=== PATIENT | male | born 1945 | race Caucasian/White ===

== ENCOUNTER 2019-07-19 12:21 | Inpatient (IN) ==
[2019-07-19 13:41] LABS: POC Blood Urea Nitrogen > 140 mg/dl (8-23); POC CO2 17 mmol/L (22-30); POC Calcium, Ionized 1.13 mmol/L (1.16-1.32); POC Chloride 116 mmol/L (96-108); POC Creatinine 5.6 mg/dl (0.7-1.2); POC Glucose, Random 61 mg/dL (70-105); POC Potassium 4.9 mmol/L (3.3-5.1); POC Sodium 144 mmol/L (133-145)
--- NOTE | 2019-07-19 14:11 | Emergency Department Note ---
General Adult HPI - General Chief complaint: Rectal Bleed Stated complaint: GI Bleed, Acute on chronic renal failure Time Seen by Provider: 07/19/19 12:50 Source: patient, EMS Mode of arrival: EMS Limitations: no limitations - History of Present Illness HPI Narrative: This 73-year-old male comes from [facility] in [place] because of elevated creatinine of 5.5. He also has had some lower GI bleeding with a hemoglobin of 9.8. His creatinine has gradually gone up. He has a history of renal artery stenosis with a stent and also an occlusive problem on the left related to procedure for bladder cancer but this seemed to improve with time. He also has had significant bleeding including multiple episodes of bright red blood following a large bowel movement this morning, with bleeding between 5 AM and 10 AM. He had to shower several times because of the amount of blood. At the hospital he was seen by Dr. Marrero, surgeon who ligated several internal hemorrhoids. He has had some off-and-on bleeding multiple times a day over the past 2 weeks. Also in the documents coming from [facility] his bradycardia. REVIEW OF SYSTEMS: Denies fever, chills, sweats, chest pain, shortness of breath, nausea, vomiting, dysuria, headache, weakness, lightheadedness, anxiety, depression. He does have swelling in his legs for 2 years. He is not certain of the cause of his kidney problems. He is not a great historian. - Related Data Home Medications Medication Instructions Recorded Confirmed aspirin 81 mg chewable tablet 81 mg PO QDAY tab 04/05/15 07/19/19 clopidogrel 75 mg tablet 75 mg PO QDAY tab 04/05/15 07/19/19 pyridoxine (vitamin B6) 50 mg 50 mg PO QDAY tab 04/05/15 07/19/19 tablet carvedilol 12.5 mg tablet 12.5 mg PO BID tab 05/03/15 07/19/19 prednisone 10 mg tablet 10 mg PO QDAY tab 05/29/16 07/19/19 docusate sodium 100 mg capsule 200 mg PO QDAY 08/14/16 07/19/19 ferrous gluconate 324 mg (36 mg 324 mg PO BID tab 02/24/19 07/19/19 iron) tablet tamsulosin 0.4 mg capsule 0.4 mg PO QDAY 02/24/19 07/19/19 furosemide 80 mg tablet 20 mg PO BID tab 05/26/19 07/19/19 Calcitriol [Rocaltrol] 0.25 mcg PO Q48H 07/19/19 07/19/19 Previous Rx's Medication Instructions Recorded lisinopril 10 mg tablet 10 mg PO QHS #30 tab 05/29/16 amlodipine 10 mg tablet 10 mg PO QDAY #30 tab 03/25/18 cholecalciferol (vitamin D3) 2,000 2,000 unit PO QDAY #30 cap 03/25/18 unit capsule rosuvastatin 10 mg tablet 10 mg PO QDAY #90 tab 02/24/19 Allergies Allergy/AdvReac Type Severity Reaction Status Date / Time No Known Drug Allergies Allergy Verified 07/19/19 12:25 Past Medical History - Past Medical History [facility] Narrative: Also, history of CVA. On chronic anticoagulants (aspirin and Plavix). These anticoagulants were apparently held for a few days but restarted but is not certain. His manages his medications. She is not present. COPD Smoker of cigarettes Chronic steroid (hx of PMR?) Medical History (Last Updated 07/19/19 @ 14:11 by Robert Khan DO) DNR no code (do not resuscitate) (Chronic) Chronic kidney disease, stage IV (severe) (Chronic) Cardiomyopathy (Chronic) Congestive heart failure (Chronic) CAD (coronary artery disease) (Chronic) Secondary hyperparathyroidism of renal origin (Chronic) Anemia in chronic renal disease (Chronic) Proteinuria (Chronic) Metabolic bone disease (Chronic) Vitamin D deficiency disease (Chronic) Malignant neoplasm of urinary bladder (Chronic) Anemia in chronic renal disease (Chronic) Hypertensive renal disease (Chronic) Microscopic hematuria (Chronic) Edema (Chronic) Secondary hyperparathyroidism of renal origin (Chronic) Tricuspid regurgitation (Chronic) Pulmonary hypertension, secondary (Chronic) Pleural effusion (Resolved) Obstructive uropathy (Chronic) Mitral regurgitation (Chronic) Hypertension, essential (Chronic) Hyperlipidemia (Chronic) Degenerative joint disease (Chronic) Anxiety disorder (Chronic) Anemia (Chronic) Past Surgical History (Last Updated 07/19/19 @ 13:52 by Robert Khan DO) History of coronary artery bypass graft (Chronic) History of ureter repair (Chronic) Family History (Last Reviewed 05/26/19 @ 10:30 by Sandra Barakat CMA) Unknown Acute myocardial infarction Medical history: Denies: DM, myocardial infarction Psychiatric history: Denies: anxiety, depression - Social History smoking status: Current every day smoker Alcohol use: Denies: None Drug use: Denies: none, marijuana Physical Exam At times is fairly good with his history but other times seems to not be certain or very reliable. Limitations: no limitations General appearance: alert, in no apparent distress Head: atraumatic, normocephalic Eye: Present: normal appearance, EOMI. Absent: scleral icterus, conjunctival injection ENT: Present: normal oropharynx, mucous membranes moist Neck: Present: trachea midline. Absent: lymphadenopathy, thyromegaly Chest: Present: symmetric chest wall rise Respiratory: Present: normal lung sounds bilaterally, wheezes (Occasional scattered wheeze or rhonchi). Absent: respiratory distress, stridor, accessory muscle use, prolonged expiratory phase Cardiovascular: Present: regular rate, normal rhythm. Absent: systolic murmur, diastolic murmur Abdominal: Present: soft. Absent: distention, tenderness, guarding, rebound, rigidity, organomegaly, mass Extremities: Present: pretibial edema (3/4 pitting bilateral). Absent: cyanosis, clubbing Back: Absent: CVA tenderness (R), CVA tenderness (L), spinous process tenderness Neurological: Present: alert, oriented X3 Psychiatric: Present: normal affect, normal mood Skin: Present: warm, dry, other (Several ecchymotic areas compatible with being on blood thinners present on extremities.) Course Vital Signs Temperature 96.9 F L 07/19/19 12:22 Temperature 96.9 F L 07/19/19 12:24 Pulse Rate 49 L 07/19/19 13:16 Respiratory Rate 15 07/19/19 13:16 Blood Pressure 137/45 07/19/19 13:16 Pulse Oximetry (%) 97 07/19/19 13:16 Medical Decision Making - [facility] Narrative Medical decision making narrative: I reviewed the medical information from [facility]. With patient's acute on chronic renal failure with a creatinine of 5.5 may need dialysis or other treatment. 1:48 PM - I spoke with Dr. Lo, who kindly accepts consultative nephrology service for this patient. 2:25 PM - I spoke with Dr. Burch, hospitalist, who kindly accepts this patient for being here in this hospital. I reviewed his care and history and circumstances and medical diagnoses with him. - Medical Records Medical records reviewed: Yes I reviewed the patient's medical records. - Lab Data Lab results reviewed: Yes I reviewed the patient's lab results. Lab Results 07/19/19 Range/Units 13:28 POC Hct 25.0 L (41.0-55.0) % POC Sodium 144 (133-145) mmol/L POC Potassium 4.9 (3.3-5.1) mmol/L POC Chloride 116 H (96-108) mmol/L POC Total CO2 17 L (22-30) mmol/L POC BUN > 140 H* (8-23) mg/dl POC Creatinine 5.6 H* (0.7-1.2) mg/dl POC Glucose 61 L (70-105) mg/dL POC WB Ioniz Calcium 1.13 L (1.16-1.32) mmol/L Disposition Pt seen by [employer]ER/PA only: No Clinical Impression: Bradycardia, Lower gastrointestinal hemorrhage, Cigarette smoker, Chronic steroid use Acute on chronic renal failure Qualifiers: Acute renal failure type: unspecified Chronic kidney disease stage: stage 5, not on chronic dialysis Qualified Code(s): N17.9 - Acute kidney failure, unspecified Hemorrhoids Qualifiers: Hemorrhoid type: unspecified Qualified Code(s): K64.9 - Unspecified hemorrhoids Summary: See "MEDICAL DECISION MAKING" above. Disposition: Xfer As Inpt ([facility]) Condition: Fair Referrals: Bry Marquez MD [Primary Care Provider] -
--- NOTE | 2019-07-19 14:55 | Internal Med History&Physical ---
Medical - H&P: [facility] Patient information: Note initiated : 07/19/19 at 2:53 pm Service Date, if different from initiated Date: [] Patient: Doug Mckeon a 73 y/o M admitted on for GI Bleed, Acute on chronic renal failure. Chief Complaint: [] History of present illness: Mr. Mckeon is a 73 year old M This is a 73-year-old gentleman with a history of multiple comorbid conditions including CAD status post CABG, AAA rupture and repair in 2009, left renal artery stent placement in 2012, CVA, GI bleed, CKD, peripheral vascular disease, hypertension,. He was evaluated at outside facility for worsening renal failure and probable hemorrhoidal bleed. Patient was started on Lasix and dose was increased but his creatinine keep going up from 2.5-5.6 today. He had history of hematochezia and was evaluated by surgeon at outside facility and repaired to internal hemorrhoids yesterday. Since then no bleeding according to the patient. He was evaluated in the ER and his creatinine was 5.6 he mentioned about slightly decreased urine output. Case scenario was discussed with the telecom coordinator on-call and planning to stop his medications lisinopril and Lasix and monitor him further and initiate dialysis if needed. - Constitutional Constitutional: Present: fatigue. Absent: chills, fever(s), frequent falls - EENT Eyes: Absent: blind spots, blurry vision, change in vision, diplopia, discharge, dry eye Ears: Absent: ear discharge, ear pain Nose, mouth and throat: Absent: abnormal hearing, bleeding gums, change in voice, dental pain, disequilibrium - Cardiovascular Cardiovascular: Present: dyspnea on exertion. Absent: acrocyanosis, chest pain, chest pain at rest, claudication, diaphoresis - Respiratory Respiratory: Present: cough, dyspnea on exertion, chest congestion. Absent: hemoptysis - Gastrointestinal Gastrointestinal: Present: abdominal pain, diarrhea, heartburn, hematochezia, loose stools - Genitourinary Genitourinary: Absent: change in urinary stream, difficulty urinating, flank pain - Neurological Neurological: Absent: abnormal speech, behavioral changes, burning sensations, confusion - Endocrine Endocrine: Present: fatigue. Absent: deeping of the voice, excessive sweating, flushing Medical - H&P: PMH Medical history: Medical History (Last Updated 07/19/19 @ 14:25 by Robert Khan DO) Chronic steroid use (Chronic) Cigarette smoker (Chronic) History of bladder cancer (Chronic) Bradycardia (Acute) COPD (chronic obstructive pulmonary disease) (Chronic) emt intermediate (current) use of anticoagulants (Chronic) History of CVA (cerebrovascular accident) (Chronic) DNR no code (do not resuscitate) (Chronic) Chronic kidney disease, stage IV (severe) (Chronic) Cardiomyopathy (Chronic) Congestive heart failure (Chronic) CAD (coronary artery disease) (Chronic) Secondary hyperparathyroidism of renal origin (Chronic) Anemia in chronic renal disease (Chronic) Proteinuria (Chronic) Metabolic bone disease (Chronic) Vitamin D deficiency disease (Chronic) Malignant neoplasm of urinary bladder (Chronic) Anemia in chronic renal disease (Chronic) Hypertensive renal disease (Chronic) Microscopic hematuria (Chronic) Edema (Chronic) Secondary hyperparathyroidism of renal origin (Chronic) Tricuspid regurgitation (Chronic) Pulmonary hypertension, secondary (Chronic) Pleural effusion (Resolved) Obstructive uropathy (Chronic) Mitral regurgitation (Chronic) Hypertension, essential (Chronic) Hyperlipidemia (Chronic) Degenerative joint disease (Chronic) Anxiety disorder (Chronic) Anemia (Chronic) Surgical history: Past Surgical History (Last Updated 07/19/19 @ 13:52 by Robert Khan DO) History of coronary artery bypass graft (Chronic) History of ureter repair (Chronic) Family history: reviewed and not pertinent Pertinent family history: Family History (Last Reviewed 05/26/19 @ 10:30 by Sandra Barakat CMA) Unknown Acute myocardial infarction Social history: Social History (Last Updated 05/26/19 @ 11:22 by Deo Lo MD) No Social History Section defined Medical - H&P: Meds Home Medications Medication Instructions Recorded Confirmed Type aspirin 81 mg chewable tablet 81 mg PO QDAY tab 04/05/15 07/19/19 History clopidogrel 75 mg tablet 75 mg PO QDAY tab 04/05/15 07/19/19 History pyridoxine (vitamin B6) 50 mg 50 mg PO QDAY tab 04/05/15 07/19/19 History tablet carvedilol 12.5 mg tablet 12.5 mg PO BID tab 05/03/15 07/19/19 History lisinopril 10 mg tablet 10 mg PO QHS #30 tab 05/29/16 07/19/19 Rx prednisone 10 mg tablet 10 mg PO QDAY tab 05/29/16 07/19/19 History docusate sodium 100 mg capsule 200 mg PO QDAY 08/14/16 07/19/19 History amlodipine 10 mg tablet 10 mg PO QDAY #30 tab 03/25/18 07/19/19 Rx cholecalciferol (vitamin D3) 2,000 2,000 unit PO QDAY #30 cap 03/25/18 07/19/19 Rx unit capsule ferrous gluconate 324 mg (36 mg 324 mg PO BID tab 02/24/19 07/19/19 History iron) tablet rosuvastatin 10 mg tablet 10 mg PO QDAY #90 tab 02/24/19 07/19/19 Rx tamsulosin 0.4 mg capsule 0.4 mg PO QDAY 02/24/19 07/19/19 History furosemide 80 mg tablet 20 mg PO BID tab 05/26/19 07/19/19 History Calcitriol [Rocaltrol] 0.25 mcg PO Q48H 07/19/19 07/19/19 History Allergies Allergy/AdvReac Type Severity Reaction Status Date / Time No Known Drug Allergies Allergy Verified 07/19/19 12:25 Medical - H&P: Exam - Constitutional Vitals: Temp Pulse Resp BP Pulse Ox 96.9 F L 45 L 15 142/46 100 07/19/19 12:24 07/19/19 14:32 07/19/19 14:49 07/19/19 14:47 07/19/19 14:32 General appearance: cooperative, obese - Head Head exam: Present: atraumatic, normal inspection, normocephalic - Expanded Head Exam Head exam: Absent: Mendes's sign, CSF otorrhea, hematoma, laceration, occipital foramen tenderness - Eye Eye exam: Present: normal appearance. Absent: conjunctival injection, periorbital swelling, periorbital tenderness Pupils: Present: PERRL - ENT ENT exam: Present: mucous membranes dry, normal exam, normal oropharynx - Expanded ENT Exam Ear exam: Absent: auricular hematoma, auricular trauma, external canal tenderness Nose & sinuses exam: Present: external nose, grossly normal, nasal mucusa, septum and turbinates normal, sinuses non tender to palpatation Mouth exam: Present: normal external inspection Teeth exam: Present: normal external inspection Throat exam: Present: normal inspection - Neck Neck exam: Present: full ROM, normal inspection. Absent: lymphadenopathy, tenderness - Respiratory Respiratory exam: Present: prolonged expiratory phase, rales, wheezes - Cardiovascular Cardiovascular exam: Present: normal rate and rhythm, bradycardia, systolic murmur. Absent: tachycardia - GI/Abdominal GI/Abdominal exam: Present: normal bowel sounds, soft, distended - Extremities Exam Extremities exam: Present: pedal edema. Absent: calf tenderness, tenderness, Lala's sign - Neurological Exam Neurological exam: Present: oriented X3, reflexes normal. Absent: motor sensory deficit - Skin Skin exam: Present: erythema, pallor Medical - H&P: A/P - Narrative A/P Narrative: Acute on chronic renal failure Baseline creatinine 2.5 and creatinine today 5.6 Decreased urine output ER physician discussed with nephrology and planning to stop his Lasix and lisinopril and recheck creatinine If he is not improving will consider dialysis According to the patient he had a dialysis few years ago History of left renal artery stenosis status post stenting 2012 History of obstructive uropathy following a bladder cancer removal Plan We will stop lisinopril and Lasix Monitor renal panel Nephrology evaluation and recommendation Planning for dialysis if his urine output is getting worse Lower GI bleed Last few days history of hematochezia status post hemorrhoidal clip No further bleeding Monitor his hemoglobin Hemoglobin 9.8 Sinus bradycardia We will hold the Coreg Monitor his heart rate and restart as needed CAD status post CABG He is on dual antiplatelets-continue We will hold the Coreg as he is bradycardic AAA rupture status post surgery This was in 2009 and patient does not know much history about it Probable COPD Patient does have a wheezing intermittently Continued smoking Duo nebs as needed CODE STATUS-he has severe vascular disease and multiple comorbid conditions make him critically ill. Explained to the patient about the critical illness and he verified he is DNR. But patient okay with the dialysis DVT prophylaxis-subcu heparin
[2019-07-19] MEDS ORDERED: 0.9 % SODIUM CHLORIDE 1,000 ML IV SCH (15:37)
[2019-07-19] MEDS ORDERED: ONDANSETRON 4 MG/2 ML VIAL IV PRN (15:37)
--- NOTE | 2019-07-19 16:05 | Nephrology Consult Note ---
History of Present Illness - Reason for Consult Patient information: Note initiated : 07/19/19 at 4:02 pm Service Date, if different from initiated Date: [] Patient: Doug Mckeon 73 y/o M admitted on 07/19/19 for GI Bleed, Acute on chronic renal failure. 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 His baseline SCr was 1.9 after recovery and 1 HD treatment ut has seen a slow upward progression to a serum Cr of 3 mg/dl when last seen. Due to his ASCAD, PVD and CHF he has been on DAPT, furosemide and lisinopril. He was receiving DANA therapy due to HgB of 7-8 range. When Lasrt checked he had adequate Iron stores. He developed GI bleeding which was atributed to internal hemorrhoids which were addresweed in the ER of [facility] by a banding procedure prior to transfer here. This may have been going on for 1-2 weeks as the patient reports loose stools, weight loss, poor oral intake and malaise. He saw his PCP yesterday and labs returned this AM with HgB 9's, BUN 120/SCr 5.0 and K 5.6 mEq/L. The patient went to ED in [place] with essentially the same labs except higher BUN, internal hemorrhoids were banded and the patient was transfered here for higher level of care. I discussed the POC with his referring PCP and our ER MD and basically, they are as follows: * Stop RASSI * Use hydralazine and nitrates for rLVEF CHF * Hold diuretics * Hold ASA/Plavix for now ...ok for SQ heparin * Treat acidosis and hyperkalemia with IV bicarb and stop ACEi * Renal U/S due to Hx of obstructive uropathy in the past * Cardiac Echo * The BUN/Cr ratio suggests upper GI bleeding so IV PPi, Transfuse, EGD * If no improvement in 24-48 hours, I will consider SANITATION ENGINEER, however the patient has age and comorbidities that suggest poor prognosis (months to 1 yr) survival on HD. Review of Systems Constitutional: fatigue, lethargy, malaise, weakness Cardiovascular: leg edema, pedal edema, slow heart rate Respiratory: cough Gastrointestinal: change in bowel habits, diarrhea, loose stools Musculoskeletal: limited range of motion Integumentary: swelling Psychiatric: change in appetite Endocrine: cold intolerance Hematologic/Lymphatic: easy bruising Past History Past medical history: Medical History (Last Updated 07/19/19 @ 14:25 by Robert Khan DO) Chronic steroid use (Chronic) Cigarette smoker (Chronic) History of bladder cancer (Chronic) Bradycardia (Acute) COPD (chronic obstructive pulmonary disease) (Chronic) 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) History of CVA (cerebrovascular accident) (Chronic) DNR no code (do not resuscitate) (Chronic) Chronic kidney disease, stage IV (severe) (Chronic) Cardiomyopathy (Chronic) Congestive heart failure (Chronic) CAD (coronary artery disease) (Chronic) Secondary hyperparathyroidism of renal origin (Chronic) Anemia in chronic renal disease (Chronic) Proteinuria (Chronic) Metabolic bone disease (Chronic) Vitamin D deficiency disease (Chronic) Malignant neoplasm of urinary bladder (Chronic) Anemia in chronic renal disease (Chronic) Hypertensive renal disease (Chronic) Microscopic hematuria (Chronic) Edema (Chronic) Secondary hyperparathyroidism of renal origin (Chronic) Tricuspid regurgitation (Chronic) Pulmonary hypertension, secondary (Chronic) Pleural effusion (Resolved) Obstructive uropathy (Chronic) Mitral regurgitation (Chronic) Hypertension, essential (Chronic) Hyperlipidemia (Chronic) Degenerative joint disease (Chronic) Anxiety disorder (Chronic) Anemia (Chronic) Surgical history: Past Surgical History (Last Updated 07/19/19 @ 13:52 by Robert Khan DO) History of coronary artery bypass graft (Chronic) History of ureter repair (Chronic) Family history: reviewed and not pertinent Pertinent family history: Family History (Last Reviewed 05/26/19 @ 10:30 by Sandra Barakat CMA) Unknown Acute myocardial infarction Social history: Social History (Last Updated 05/26/19 @ 11:22 by Deo Lo MD) No Social History Section defined Medications and Allergies Home Medications Medication Instructions Recorded Confirmed Type aspirin 81 mg chewable tablet 81 mg PO QDAY tab 04/05/15 07/19/19 History clopidogrel 75 mg tablet 75 mg PO QDAY tab 04/05/15 07/19/19 History pyridoxine (vitamin B6) 50 mg 50 mg PO QDAY tab 04/05/15 07/19/19 History tablet carvedilol 12.5 mg tablet 12.5 mg PO BID tab 05/03/15 07/19/19 History lisinopril 10 mg tablet 10 mg PO QHS #30 tab 05/29/16 07/19/19 Rx prednisone 10 mg tablet 10 mg PO QDAY tab 05/29/16 07/19/19 History docusate sodium 100 mg capsule 200 mg PO QDAY 08/14/16 07/19/19 History amlodipine 10 mg tablet 10 mg PO QDAY #30 tab 03/25/18 07/19/19 Rx cholecalciferol (vitamin D3) 2,000 2,000 unit PO QDAY #30 cap 03/25/18 07/19/19 Rx unit capsule ferrous gluconate 324 mg (36 mg 324 mg PO BID tab 02/24/19 07/19/19 History iron) tablet rosuvastatin 10 mg tablet 10 mg PO QDAY #90 tab 02/24/19 07/19/19 Rx tamsulosin 0.4 mg capsule 0.4 mg PO QDAY 02/24/19 07/19/19 History furosemide 80 mg tablet 20 mg PO BID tab 05/26/19 07/19/19 History Calcitriol [Rocaltrol] 0.25 mcg PO Q48H 07/19/19 07/19/19 History Allergies Allergy/AdvReac Type Severity Reaction Status Date / Time No Known Drug Allergies Allergy Verified 07/19/19 12:25 Exam - Vital Signs Vital signs: Temp Pulse Resp BP Pulse Ox 96.9 F L 45 L 15 142/46 100 07/19/19 12:24 07/19/19 15:38 07/19/19 15:38 07/19/19 15:38 07/19/19 15:38 - General Appearance General appearance: chronically ill, fatigue, frail EENT: ATNC, PERRL, mucous membranes dry Neck: JVD, no carotid bruit, supple Respiratory: rhonchi Cardiology: no murmurs, no rub, no gallops, edema, regular rate (Sinus bradycardia), normal S1, normal S2 Gastrointestinal: normoactive bowel sounds, no tenderness, abdominal bruit Integumentary: no rash Neurologic: no focal deficit, no asterixis, alert and oriented x3 Musculoskeletal: no deformities, no clubbing Psychiatric: mood/affect appropriate Results - Lab Results 07/19/19 13:28 - Image Kidney/bladder ultrasound: image reviewed Assessment and Plan (1) Acute on chronic renal failure Suspect this is acute renal failure due to renal hypoperfusion from bradycardia in the setting of known dilated cardiomyopathy (CO=HR x SV) ashis SVis limited by his known dilated CHF withr EF, plus hemodynamic effect of ACEi and the effect of acute GI blood loss * Stop ACEi and diuretic * Use hydralazine and nitrates for CHF treatment (preload and afterload reduction) * U/S to rule out obstructive uropathy * If bradycardia continues, trial of a chronotropic agent like dopamine and or dobutamine * Check FeNa, Urine eosinophils, and urine protein/creatinine ratio In the past, his CKD 4 has been attributed to hypertension and renovascular dis ease and incomplete recovery after obstruction and ARF. His course has been stable or slowly progressive. * Repeat U/S * Other changes as above * Looking at his co-morbidities, his survival is poor if he requires HD. * This was discussed with the patient * At this time there is no acute need for HD Status: Acute Priority: High Qualifiers: Acute renal failure type: unspecified Chronic kidney disease stage: stage 4 (severe) Qualified Code(s): N17.9 - Acute kidney failure, unspecified; N18.4 - Chronic kidney disease, stage 4 (severe) (2) Secondary hyperparathyroidism of renal origin Monitor PTHi, Ca and PO4 * Goal PTH 100-300 * Keep PO4 less than 5 * Ca <10 adjusted for Albumin Status: Chronic Priority: Low Comment: PTH at 105 , at goal for CKD stage I V, vitamin D is at 30 calcium at goal, phos is elevated Ct calcitriol and cholecalciferol ct renvela for phos binding will monitor (3) Chronic systolic CHF (congestive heart failure), NYHA class 3 ASCAD with CABG in 2009 EF 40-45% in 2014 and 50% in [address] Melgar * Check proBNP * Repeat cardiac Echo * Stop RAASI and use hydralazine and nitrates * If HR low and EF low, I'd add dopamine and or dobutamine Status: Chronic Priority: High (4) Lower gastrointestinal hemorrhage Has had diarrhea and loose stool with internal hemorrhoids which was banded in OSH/ED However, the BUN is so high I suspect UGI source * Hold ASA and plavix * PPI * Serial HgB * Transfuse to HgB 9-10 mg/dl due to CKD5, ongoing GI losses and CV disease * EGD when stable Status: Acute Priority: High (5) Anemia in chronic renal disease Adequate iron stores as outpatient * Aranesp as needed after acute bleeding has stopped at 0.75 ug/kg/week Status: Chronic Priority: Medium Qualifiers: Chronic kidney disease stage: stage 5, not on chronic dialysis Qualified Code(s): N18.5 - Chronic kidney disease, stage 5; D63.1 - Anemia in chronic kidney disease (6) Metabolic acidosis with increased anion gap and reduced excretion of inorganic acids Primarly due to worsenig GFR but hypoperfusion could be an element if CO is low. * Bicarb drip 100 meq/L at 100 cc/hr is 4 amps bicarb over 20 hours * Should help the hyperkalemia and hyperphosphatemia * Will be limited by volume Status: Acute Priority: Medium
[2019-07-19] MEDS ORDERED: 0.9 % SODIUM CHLORIDE 250 ML IV SCH ×2 (16:45→17:15)
[2019-07-19] MEDS ORDERED: SODIUM BICARBONATE VIAL 100 MEQ in DEXTROSE 5% IN WATER 900 ML IV SCH (17:00)
[2019-07-19 17:01] LABS: Estimated Average Glucose(eAG) 91 mg/dL; Hemoglobin A1C 4.8 % HGB (4.0-6.0)
[2019-07-19 17:05] LABS: ALT/SGPT 25 U/l (0-40); AST/SGOT 18 U/l (0-37); Albumin 3.3 gm/dL (3.2-5.2); Albumin/Globulin Ratio 1.6 (1.0-2.3); Alkaline Phosphatase 65 U/L (39-117); Bilirubin,Total 0.4 mg/dL (0.0-1.0); Blood Urea Nitrogen 133 mg/dl (8-23); Carbon Dioxide 15 mmol/L (22-30); Chloride 112 mmol/L (96-108); Globulin 2.1 gm/dL (2.2-3.7); Glomerular Filtration Rate 10; Glucose 53 mg/dL (70-105); Thyroid Stimulating Hormone 1.37 uIU/ml (0.27-5.01)
--- NOTE | 2019-07-19 17:42 | Ultrasound Report ---
History: Stage IV chronic renal disease, evaluate for urinary tract obstruction FINDINGS: The right kidney measures 4.5 x 4.5 x 10.0 cm left measures 3.8 x 4.2 x 9.8 cm. The cortex of both kidneys is echogenic due to chronic medical renal disease. There is a small defect in the cortex inferiorly left kidney which could be lobulation or an old cortical infarct. There are multiple small cysts in both kidneys. The largest in the right kidney is in the lower pole measures 1.0 x 1.1 cm. The largest cyst in left kidney is located inferiorly and measures 1.1 x 1.2 cm. In the lower third of the right kidney there is a round echogenic nonshadowing 6 mm structure which could be an angiomyolipoma. In the hilar region of the right kidney there is a complex hypoechoic avascular 1.6 x 1.8 cm structure. Has some low level echoes within it. This could be a complex cyst. The prior ultrasound done on 09/17/14 there is a suggestion of thrombus in the right renal pelvis. The structure seen along the medial occipital to the right renal pelvis and today's study does not appear to be clot. Is probably a complex cyst. Is unlikely neoplasm. Doppler shows flow of urine through both ureters into the bladder, right side greater than left. Before voiding the bladder contained 238 cc of urine. There is low level echogenic debris posteriorly. After voiding there is 149 cc of residual urine. Prostate is mildly enlarged with an estimated volume of 36 cc. IMPRESSION: Echogenic renal parenchyma bilaterally due to chronic medical renal disease, with relatively diminished urine output on the left side compared to the right Cysts in both kidneys Hypoechoic structure medially in the right kidney which is probably a complex parapelvic cyst Bladder outlet obstruction, probably due to an enlarged prostate Interpreted and Authenticated by: Mac Erwin 07/19/19
[2019-07-19 18:06] LABS: Sodium, Urine Random 35 mmol/L
[2019-07-19] MEDS: PANTOPRAZOLE 40 MG TABLET PO SCH (21:01)
[2019-07-19] MEDS: hydrALAZINE 10 MG TABLET PO SCH (21:01)
[2019-07-19] MEDS: DOCUSATE SODIUM 100 MG CAPSULE PO SCH (21:01)
[2019-07-19] MEDS: HEPARIN 5,000 UNIT/ML VIAL SQ SCH (21:02)
[2019-07-19] MEDS: ISOSORBIDE DINITRATE 10 MG TABLET PO SCH (21:02)
[2019-07-19] MEDS: 0.9 % SODIUM CHLORIDE 10 ML SYRINGE IV SCH (21:02)
[2019-07-20] MEDS: 0.9 % SODIUM CHLORIDE 10 ML SYRINGE IV SCH ×3 (05:38→20:21)
[2019-07-20] MEDS ORDERED: SODIUM BICARBONATE VIAL 100 MEQ in DEXTROSE 5% IN WATER 900 ML IV SCH (07:15)
[2019-07-20 07:34] LABS: Hematocrit 29.4 % (41.0-55.0); Hemoglobin 9.7 g/dL (13.5-16.5); Mean Cell Volume 90.3 fL (80.0-100.0); Mean Corpuscular HGB Conc 32.8 g/dL (31.0-36.0); Mean Platelet Volume 13.2 fL (7.4-10.4); Platelet Count 90 K/mcL (140-440); RBC 3.26 M/mcL (4.50-5.90); Red Cell Distribution Width 16.3 % (11.5-14.5); WBC 8.1 K/mcL (4.5-11.0)
[2019-07-20] MEDS ORDERED: LACTULOSE 20 GM/30 ML ORAL.SOL PO SCH ×2 (09:00)
[2019-07-20 09:02] LABS: ALT/SGPT 24 U/l (0-40); AST/SGOT 19 U/l (0-37); Albumin 3.4 gm/dL (3.2-5.2); Albumin/Globulin Ratio 1.7 (1.0-2.3); Alkaline Phosphatase 62 U/L (39-117); Bilirubin,Total 0.9 mg/dL (0.0-1.0); Blood Urea Nitrogen 128 mg/dl (8-23); Calcium 7.9 mg/dl (8.6-10.4); Carbon Dioxide 17 mmol/L (22-30); Chloride 110 mmol/L (96-108); Glomerular Filtration Rate 11; Glucose 89 mg/dL (70-105)
[2019-07-20 09:48] LABS: Anisocytosis 1+ (NONE SEEN); Band Neutrophils % 1 % (0-10); Eosinophils % (Manual) 2 % (0-7); Lymphocytes % 14 % (15-49); Monocytes % (Manual) 9 % (1-12); Ovalocytes FEW (NONE SEEN); Platelet Estimate DECREASED (NORMAL); RBC Morphology ABNORM (NORMAL); Segmented Neutrophils % 74 % (38-78)
[2019-07-20] MEDS ORDERED: DOBUTamine 250 ML IV ONE ×2 (10:07→19:05)
[2019-07-20] MEDS: DOCUSATE SODIUM 100 MG CAPSULE PO SCH ×2 (10:15→20:15)
[2019-07-20] MEDS: hydrALAZINE 10 MG TABLET PO SCH ×2 (10:16→15:32)
[2019-07-20] MEDS: 0.9 % SODIUM CHLORIDE 250 ML IV SCH ×2 (10:46→20:32)
[2019-07-20] MEDS: DOBUTamine 250 MG in PREMIX 1 BAG IV SCH (10:47)
[2019-07-20] MEDS: HEPARIN 5,000 UNIT/ML VIAL SQ SCH ×2 (11:03→20:16)
[2019-07-20] MEDS: SENNOSIDES 8.8 MG/5 ML ML PT SCH (11:13)
[2019-07-20] MEDS: ISOSORBIDE DINITRATE 10 MG TABLET PO SCH ×3 (11:14→20:25)
--- NOTE | 2019-07-20 11:54 | Internal Med Progress Note ---
Medical - PN: Subj Patient information: Note initiated : 07/20/19 at 11:52 am Service Date, if different from initiated Date: [] Patient: Doug Mckeon 73 y/o M admitted on 07/19/19 for GI Bleed, Acute on chronic renal failure. Chief Complaint: [] Interval history: 73-year-old gentleman with a history of multiple comorbid conditions including CAD status post CABG, AAA rupture and repair in 2009, left renal artery stent placement in 2012, CVA, GI bleed, CKD, peripheral vascular disease, hypertensio n. He was admitted for progressively worsening renal failure with a creatinine of 5.6 and decreased urine output 07/20 -seen by nephrology yesterday and started him on bicarb drip, stopped NOEMÍ inhibitor and Coreg. He remained bradycardic overnight and started him on dobutamine by nephrology this morning. His heart rate has been more than 60. His urine output improved since having Perez catheter. He is having constipation and started him on lactulose and enema if needed. Pertinent ROS: General appearance-mild distress, alert oriented answering questions Abdominal-complaining of constipation Respiratory-no shortness of breath no wheezing no crackles CVS-no chest pain no palpitations Neurology-no no focal deficit identified Skin-multiple bruises and petechiae - Constitutional Vitals: Vital Signs Temp Pulse Resp BP Pulse Ox 99.2 F H 56 L 18 149/54 95 07/20/19 07:03 07/20/19 06:01 07/20/19 11:50 07/20/19 11:46 07/20/19 11:50 Period Temp Pulse Resp BP Sys/Leija Pulse Ox Last 24 Hr 96.9 F-99.2 F 34-56 13-26 127-160/41-85 81-100 Intake and Output 07/19/19 07/20/19 07/20/19 21:59 05:59 13:59 Intake Total 287 40 5327 Output Total 100 352 Balance 753 -312 1003 Weight 149 lb 11.2 oz Intake & Output: Intake & Output 07/19/19 07/20/19 07/20/19 21:59 05:59 13:59 Intake Total 517 96 8079 Output Total 100 352 Balance 753 -312 1003 Weight 149 lb 11.2 oz Intake: IV 48 40 1003 Sodium Chloride 0.9% 1,000 ml @ 48 30 mls/hr IV .Q24H QUIANA Rx#: [id number] Sodium Chloride 0.9% 250 ml @ 40 20 mls/hr IV .[id number] QUIANA Rx#: [id number] Dobutrex 250 mg In Premix 1 Bag 3 @ 1 MCG/KG/MIN 4.074 mls/hr IV .Q24H QUIANA Rx#:[id number] Sodium Bicarbonate Vial 100 Meq 1000 In Dextrose 5% in Water 900 ml @ 100 mls/hr IV Q20H QUIANA Rx#: [id number] Oral 480 Blood Product 325 Output: Void Amount 100 350 # of times incontinent of urine 2 Other: Meal Dinner Percent of Meal Consumed 100% Urine Appearance Uretheral (Perez) Clear Urine Color Uretheral (Perez) Pale Urine Odor Uretheral (Perez) Normal Stool Size Small Stool Color Brown Jin Bright Red Blood Stool Consistency Soft Formed # Bowel Movements 2 General appearance: mild distress, obese - Head Head exam: Present: atraumatic, normal inspection, normocephalic - Eye Eye exam: Present: normal appearance Pupils: Present: PERRL - ENT ENT exam: Present: mucous membranes moist, normal exam, normal external ear exam - Neck Neck exam: Present: full ROM, normal inspection. Absent: lymphadenopathy - Respiratory Respiratory exam: Present: rales, wheezes - Cardiovascular Cardiovascular exam: Present: bradycardia, systolic murmur - GI/Abdominal GI/Abdominal exam: Present: normal bowel sounds, soft, distended - Neurological Exam Neurological exam: Present: alert, oriented X3. Absent: motor sensory deficit - Skin Skin exam: Present: abrasion, erythema, petechiae, rash Medical - PN: Obj Da - Labs CBC & Chem 7: 07/20/19 04:00 07/20/19 15:37 Labs: Abnormal Lab Results 07/20/19 07/20/19 07/20/19 15:37 04:00 04:00 RBC 3.26 L Hgb 9.7 L Hct 29.4 L POC Hct RDW 16.3 H Plt Count 90 L MPV 13.2 H Lymphocytes % 14 L Platelet Estimate Decreased A RBC Morphology Abnorm A Anisocytosis 1+ A Ovalocytes Few A Sodium POC Chloride Chloride 110 H Carbon Dioxide 17 L POC Total CO2 Anion Gap 18.0 H POC BUN BUN 128 H* Creatinine 4.7 H POC Creatinine Glucose POC Glucose Calcium 7.9 L POC WB Ioniz Calcium Magnesium 3.2 H NT-Pro-B Natriuret Pep Total Protein 5.4 L Globulin 2.0 L PTH Intact 161.8 H 07/19/19 07/19/19 07/19/19 17:10 13:28 13:28 RBC Hgb Hct POC Hct 25.0 L RDW Plt Count MPV Lymphocytes % Platelet Estimate RBC Morphology Anisocytosis Ovalocytes Sodium 147 H POC Chloride 116 H Chloride 112 H Carbon Dioxide 15 L POC Total CO2 17 L Anion Gap 20.0 H POC BUN > 140 H* BUN 133 H* Creatinine 5.0 H POC Creatinine 5.6 H* Glucose 53 L POC Glucose 61 L Calcium 8.0 L POC WB Ioniz Calcium 1.13 L Magnesium 3.3 H NT-Pro-B Natriuret Pep 56162.0 H Total Protein 5.4 L Globulin 2.1 L PTH Intact Meds: Medications Docusate Sodium (Colace) 100 mg PO BID [facility] Last Admin: 07/20/19 10:15 Dose: 100 mg Documented by: Heparin Sodium (Porcine) (Heparin) 5,000 unit SQ Q12 [facility] Last Admin: 07/20/19 11:03 Dose: Not Given Documented by: Hydralazine HCl (Apresoline) 10 mg PO TID [facility] Last Admin: 07/20/19 10:16 Dose: 10 mg Documented by: Sodium Bicarbonate 100 meq/ (Dextrose) 1,000 mls @ 100 mls/hr IV Q10H [facility] Stop: 07/20/19 17:14 Last Admin: 07/20/19 07:28 Dose: 100 mls/hr Documented by: Dobutamine HCl/Dextrose 250 mg (/ Premix) 250 mls @ 4.074 mls/hr IV .Q24H [facility]; Protocol Last Titration: 07/20/19 11:29 Dose: 2 mcg/kg/min, 8.148 mls/hr Documented by: Sodium Chloride (Sodium Chloride 0.9%) 250 mls @ 20 mls/hr IV .[id number] [facility] Last Admin: 07/20/19 10:46 Dose: 20 mls/hr Documented by: Isosorbide Dinitrate (Isordil) 5 mg PO TID [facility] Last Admin: 07/20/19 11:14 Dose: 5 mg Documented by: Lactulose (Cephulac) 20 gm PO TID [facility] Last Admin: 07/20/19 11:02 Dose: 20 gm Documented by: Ondansetron HCl (Zofran) 4 mg IV Q4-6HP PRN; Protocol PRN Reason: Nausea And Vomiting Pantoprazole Sodium (Protonix) 40 mg PO HS [facility] Last Admin: 07/19/19 21:01 Dose: 40 mg Documented by: Senna (Senna) 8.8 mg PT DAILY [facility] Last Admin: 07/20/19 11:13 Dose: 8.8 mg Documented by: Sodium Chloride (Saline Flush) 10 ml IV Q8 [facility] Last Admin: 07/20/19 05:38 Dose: Not Given Documented by: Medical - PN: A/P - Time Spent With Patient Total time spent is greater than 50% in coordination of care (as documented) at patient's floor/unit and/or counseling patient: - Narrative A/P Narrative: Acute on chronic renal failure Baseline creatinine 2.5 and creatinine today 5.6 Decreased urine output Plan Stopped Lasix and lisinopril Started him on hydralazine and nitrates for CHF Holding aspirin and Plavix because of the GI bleed Renal ultrasound showing evidence of obstruction Perez catheter placed and having good urine output Echocardiogram ordered-pending Nephrology closely following up and planning dialysis if he is not improving in the next 24 to 40-hour Dobutamine drip was started because of the bradycardia and to avoid further renal damage Lower GI bleed-probable internal hemorrhoidal bleed Last few days history of hematochezia status post hemorrhoidal clip He had some hematochezia this morning Monitoring BUN and hemoglobin monitor his hemoglobin Holding aspirin Plavix and heparin subcu Sinus bradycardia probably due to Coreg We will hold the Coreg Heart rate has been progressively improving since yesterday CAD status post CABG Holding dual antiplatelets due to lower GI bleed we will hold the Coreg as he is bradycardic Using hydralazine and long-acting nitro for CHF AAA rupture status post surgery This was in 2009 and patient does not know much history about it Probable COPD Patient does have a wheezing intermittently Continued smoking Duo nebs as needed CODE STATUS-he has severe vascular disease and multiple comorbid conditions make him critically ill. Explained to the patient about the critical illness and he verified he is DNR. But patient okay with the dialysis DVT prophylaxis-subcu heparin Medical - PN: Qual - VTE Deep Vein Thrombosis/Pulmonary Embolism Present on Admission: No
--- NOTE | 2019-07-20 16:36 | Nephrology Progress Note ---
Subjective Patient information: Note initiated : 07/20/19 at 4:32 pm Service Date, if different from initiated Date: [] Patient: Doug Mckeon 73 y/o M admitted on 07/19/19 for GI Bleed, Acute on chronic renal failure. Chief Complaint: [] Principal diagnosis: Renal failure, hyperkalemia and GI bleed Interval history: Slightly improved SCr, K and acidosis. ECHO=> pLVEF but evidence of elevated right sided pressures, early cor pulmonale and no effusion Renal U/S=> No obstruction, increased PVRV, few cysts, increased echogenicity c/w CKD Tele=> persistent bradycardia into 30's, Dobutamine started as positive chronotropic Rx. Not clear if he was on carvedilol or not Non-oliguria Transfused 1 unit pRBCs Pertinent ROS: Constipation relieved with lactulose Additional PMFSH (Level 3 Only): Nothing new Objective - Vital Signs Vital signs: Vital Signs Temp Pulse Resp BP Pulse Ox 07/20/19 16:17 20 159/47 91 07/20/19 16:02 19 140/50 93 07/20/19 15:51 18 95 07/20/19 15:47 18 163/40 98 07/20/19 15:32 19 189/56 98 07/20/19 15:17 16 143/53 94 07/20/19 15:02 19 163/52 96 07/20/19 14:47 17 164/53 97 07/20/19 14:32 21 168/61 89 L 07/20/19 14:17 21 149/47 07/20/19 14:04 21 154/53 98 07/20/19 13:31 11 L 159/85 95 07/20/19 13:16 19 161/52 98 07/20/19 12:16 20 158/58 93 07/20/19 12:02 99.0 F 20 157/50 96 07/20/19 11:50 18 95 07/20/19 11:46 18 149/54 91 07/20/19 11:32 20 140/55 93 07/20/19 11:17 18 160/54 07/20/19 11:01 20 148/54 90 07/20/19 10:55 23 H 141/55 97 07/20/19 10:52 23 H 149/52 89 L 07/20/19 07:03 99.2 F H 20 159/53 96 07/20/19 06:01 56 L 17 151/61 90 07/20/19 05:01 50 L 18 97 07/20/19 04:48 52 L 21 94 07/20/19 04:04 99.0 F 53 L 20 151/48 95 07/20/19 03:10 22 154/60 98 07/20/19 02:18 52 L 20 96 07/20/19 02:00 96 07/20/19 00:02 44 L 21 146/50 95 07/19/19 23:13 17 07/19/19 22:23 20 07/19/19 22:02 16 153/47 98 07/19/19 21:35 26 H 07/19/19 21:01 44 L 16 154/52 93 07/19/19 20:02 98.5 F 43 L 18 142/55 97 07/19/19 20:00 95 07/19/19 19:51 42 L 17 133/52 97 07/19/19 19:42 48 L 16 147/59 92 07/19/19 19:02 19 149/53 07/19/19 18:16 16 07/19/19 18:13 13 147/49 07/19/19 17:09 40 L 17 142/56 93 Intake and Output 07/20/19 07/20/19 07/20/19 05:59 13:59 21:59 Intake Total 40 1003 49 Output Total 352 767 65 Balance -312 236 -16 Intake: IV 40 1003 49 Sodium Chloride 0.9% 250 ml @ 40 20 mls/hr IV .[id number] QUIANA Rx#: [id number] Dobutrex 250 mg In Premix 1 Bag 3 49 @ 1 MCG/KG/MIN 4.074 mls/hr IV .Q24H QUIANA Rx#:[id number] Sodium Bicarbonate Vial 100 Meq 1000 In Dextrose 5% in Water 900 ml @ 100 mls/hr IV Q20H QUIANA Rx#: [id number] Output: Urine Catheter Amount 692 65 Void Amount 350 75 # of times incontinent of urine 2 Other: Urine Appearance Clear Clear Uretheral (Perez) Clear Clear Urine Color Pale Pale Uretheral (Perez) Pale Pale Urine Odor Uretheral (Perez) Normal Stool Size Small Small Stool Color Brown Brown Green Green Stool Consistency Liquid Liquid # Bowel Movements 2 2 # of times incontinent of 1 Bowels Weight 149 lb 11.2 oz Patient Weight 07/21/19 05:59 Weight 149 lb 11.2 oz Intake & Output: Intake & Output 07/20/19 07/20/19 07/20/19 05:59 13:59 21:59 Intake Total 40 1003 49 Output Total 352 767 65 Balance -312 236 -16 Weight 149 lb 11.2 oz Intake: IV 40 1003 49 Sodium Chloride 0.9% 250 ml @ 40 20 mls/hr IV .[id number] QUIANA Rx#: [id number] Dobutrex 250 mg In Premix 1 Bag 3 49 @ 1 MCG/KG/MIN 4.074 mls/hr IV .Q24H QUIANA Rx#:[id number] Sodium Bicarbonate Vial 100 Meq 1000 In Dextrose 5% in Water 900 ml @ 100 mls/hr IV Q20H QUIANA Rx#: [id number] Output: Urine Catheter Amount 692 65 Void Amount 350 75 # of times incontinent of urine 2 Other: Urine Appearance Clear Clear Uretheral (Perez) Clear Clear Urine Color Pale Pale Uretheral (Perez) Pale Pale Urine Odor Uretheral (Perez) Normal Stool Size Small Small Stool Color Brown Brown Green Green Stool Consistency Liquid Liquid # Bowel Movements 2 2 # of times incontinent of 1 Bowels - General Appearance General appearance: moderate distress, chronically ill, frail EENT: ATNC, PERRL, mucous membranes dry Neck: JVD, no carotid bruit, supple Respiratory: kyphosis, rhonchi Cardiology: no murmurs, edema, regular rate (Bradycardia till placed on dobutamine) Gastrointestinal: normoactive bowel sounds Integumentary: no rash, cool/clammy, ecchymotic Neurologic: no focal deficit, no asterixis, CN 3-12 intact Musculoskeletal: no cyanosis, no clubbing Psychiatric: mood/affect appropriate - Lab 07/20/19 04:00 07/20/19 15:37 Most recent lab results Calcium 7.9 mg/dl (8.6-10.4) L 07/20/19 15:37 Magnesium 3.2 mg/dL (1.6-2.5) H 07/20/19 15:37 - Imaging Kidney/bladder ultrasound: report reviewed Assessment and Plan (1) Acute on chronic renal failure 1. The combination of low cardiac output (HR 30-50 with fixed SV), low fractional excreation of sodium, ARF on CRF 4, hyperkalemia and no obstruction omn renal U/S makes a good case that this patient needs his HR increased to 70- 80/min to double his current cardiac output and improve end organ perfusion. * Dobutamine till HR improves assuming carvedilol was the problem * If the heart rate has not improved in 24 hours, I suggest transfer for higher level of care and PPM * Continue to refrain from RAASI, especially since he has normal LVEF * Treat RV failure, pulmonary HTN with Hydralazine, nitrites, furosemide +/- aldactone * Avoid NSAIDs Status: Acute Priority: High Qualifiers: Acute renal failure type: unspecified Chronic kidney disease stage: stage 4 (severe) Qualified Code(s): N17.9 - Acute kidney failure, unspecified; N18.4 - Chronic kidney disease, stage 4 (severe) (2) Secondary hyperparathyroidism of renal origin PTH 160, need to check PO4 * Restart calcitriol at D/C * Keep PO4 < 5.5 Status: Chronic Priority: Low Comment: PTH at 162, at goal for CKD stage IV, vitamin D is at 30 calcium at goal, phos is elevated Ct calcitriol and cholecalciferol ct renvela for phos binding will monitor (3) Chronic systolic CHF (congestive heart failure), NYHA class 3 Actually, this is more like Cor pulmonale * BNP elevated, will restart lasix in a day or so * No need for lisinopril or B-Blockers * Hydralazine and nitrates +/- aldactone * Probably needs to quit smoking Status: Chronic Priority: High (4) Lower gastrointestinal hemorrhage Internal hemorrhoids banded and transfused 1 unit * Trend HgB * DANA and po iron as indicated due to decreased GFR * EGD when stable Status: Acute Priority: High (5) Anemia in chronic renal disease As above Status: Chronic Priority: Medium Qualifiers: Chronic kidney disease stage: stage 5, not on chronic dialysis Qualified Code(s): N18.5 - Chronic kidney disease, stage 5; D63.1 - Anemia in chronic kidney disease (6) Metabolic acidosis with increased anion gap and reduced excretion of inorganic acids Improved with IV bicarb * Bicarb or bicitra at d/c * Goal HCO3 of 20-24 Status: Acute Priority: Medium
[2019-07-20] MEDS ORDERED: hydrALAZINE 20 MG/ML VIAL IV PRN (17:50)
[2019-07-20] MEDS: PANTOPRAZOLE 40 MG TABLET PO SCH (20:21)
[2019-07-20] MEDS: hydrALAZINE 25 MG TABLET PO SCH (20:22)
[2019-07-20 21:15] LABS: Albumin 3.2 gm/dL (3.2-5.2); Blood Urea Nitrogen 112 mg/dl (8-23); Calcium 7.9 mg/dl (8.6-10.4); Carbon Dioxide 22 mmol/L (22-30); Chloride 109 mmol/L (96-108); Glomerular Filtration Rate 15; Glucose 97 mg/dL (70-105); Phosphorous 4.5 mg/dL (2.7-4.5)
[2019-07-20] MEDS: QUEtiapine 25 MG TABLET PO SCH (23:48)
[2019-07-20] MEDS ORDERED: QUEtiapine 25 MG TABLET ONE (23:48)
[2019-07-21] MEDS ORDERED: DOBUTamine 250 ML IV ONE ×2 (01:04→07:28)
[2019-07-21] MEDS: DOBUTamine 250 MG in PREMIX 1 BAG IV SCH (01:05)
[2019-07-21] MEDS ORDERED: DOBUTamine 250 MG in PREMIX 1 BAG IV SCH (02:03)
[2019-07-21] MEDS: 0.9 % SODIUM CHLORIDE 10 ML SYRINGE IV SCH ×3 (05:09→21:24)
[2019-07-21 06:15] LABS: ALT/SGPT 20 U/l (0-40); AST/SGOT 17 U/l (0-37); Albumin 2.8 gm/dL (3.2-5.2); Albumin/Globulin Ratio 1.4 (1.0-2.3); Alkaline Phosphatase 53 U/L (39-117); Bilirubin,Total 0.6 mg/dL (0.0-1.0); Blood Urea Nitrogen 107 mg/dl (8-23); Calcium 7.9 mg/dl (8.6-10.4); Carbon Dioxide 20 mmol/L (22-30); Chloride 113 mmol/L (96-108); Glomerular Filtration Rate 14; Glucose 128 mg/dL (70-105)
[2019-07-21] MEDS: SENNOSIDES 8.8 MG/5 ML ML PT SCH (07:29)
[2019-07-21] MEDS: DOCUSATE SODIUM 100 MG CAPSULE PO SCH ×2 (07:29→21:18)
[2019-07-21 07:59] LABS: Anisocytosis 1+ (NONE SEEN); Band Neutrophils % 6 % (0-10); Eosinophils % (Manual) 1 % (0-7); Lymphocytes % 9 % (15-49); Monocytes % (Manual) 15 % (1-12); Platelet Estimate DECREASED (NORMAL); RBC Morphology A (NORMAL); Reactive Lymphocytes 1 % (0-2); Segmented Neutrophils % 68 % (38-78)
[2019-07-21 08:01] LABS: Hematocrit 28.3 % (41.0-55.0); Hemoglobin 9.2 g/dL (13.5-16.5); Mean Cell Volume 90.4 fL (80.0-100.0); Mean Corpuscular HGB Conc 32.7 g/dL (31.0-36.0); Mean Platelet Volume 10.6 fL (7.4-10.4); Platelet Count 61 K/mcL (140-440); RBC 3.13 M/mcL (4.50-5.90); WBC 9.8 K/mcL (4.5-11.0)
--- NOTE | 2019-07-21 08:33 | Nephrology Progress Note ---
Subjective Patient information: Note initiated : 07/21/19 at 8:27 am Service Date, if different from initiated Date: [] Patient: Doug Mckeon 73 y/o M admitted on 07/19/19 for GI Bleed, Acute on chronic renal failure. 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 reduced EF on two separate occasions (30% in '14 => 46% by '15) current LVEF if 55% Pertinent ROS: nothing new Additional PMFSH (Level 3 Only): Dr Melgar has seen in past for ischemic cardiomyopathy (EF 30 => 50%) Objective - Vital Signs Vital signs: Vital Signs Temp Pulse Resp BP Pulse Ox 07/21/19 06:06 17 149/51 98 07/21/19 05:01 14 153/56 96 07/21/19 04:01 99.0 F 17 140/45 95 07/21/19 03:36 23 H 07/21/19 03:02 14 119/52 87 L 07/21/19 02:02 17 149/45 07/21/19 02:00 49 L 20 99 07/21/19 01:01 21 155/47 98 07/21/19 01:00 22 147/48 100 07/21/19 00:56 100.2 F H 24 H 147/48 100 07/21/19 00:01 100.7 F H 22 148/56 93 07/20/19 23:01 19 153/58 99 07/20/19 22:58 101.2 F H 17 159/60 97 07/20/19 22:15 25 H 145/59 99 07/20/19 22:01 19 139/41 07/20/19 21:45 30 H 160/56 99 07/20/19 21:02 20 145/58 96 07/20/19 20:35 17 149/77 95 07/20/19 19:27 98 07/20/19 18:54 98.4 F 21 150/61 96 07/20/19 18:19 21 99 07/20/19 18:17 22 158/56 98 07/20/19 18:02 21 162/54 95 07/20/19 17:56 21 148/105 95 07/20/19 17:55 19 158/119 95 07/20/19 17:54 20 159/68 93 07/20/19 17:53 21 154/84 93 07/20/19 17:52 22 163/51 93 07/20/19 17:51 20 153/46 93 07/20/19 17:47 17 172/47 95 07/20/19 17:34 18 154/66 99 07/20/19 17:02 21 157/41 98 07/20/19 16:47 23 H 169/50 98 07/20/19 16:32 98.8 F 23 H 158/62 97 07/20/19 16:17 20 159/47 91 07/20/19 16:02 19 140/50 93 07/20/19 15:51 18 95 07/20/19 15:47 18 163/40 98 07/20/19 15:32 19 189/56 98 07/20/19 15:17 16 143/53 94 07/20/19 15:02 19 163/52 96 07/20/19 14:47 17 164/53 97 07/20/19 14:32 21 168/61 89 L 07/20/19 14:17 21 149/47 07/20/19 14:04 21 154/53 98 07/20/19 13:31 11 L 159/85 95 07/20/19 13:16 19 161/52 98 07/20/19 12:16 20 158/58 93 07/20/19 12:02 99.0 F 20 157/50 96 07/20/19 11:50 18 95 07/20/19 11:46 18 149/54 91 07/20/19 11:32 20 140/55 93 07/20/19 11:17 18 160/54 07/20/19 11:01 20 148/54 90 07/20/19 10:55 23 H 141/55 97 07/20/19 10:52 23 H 149/52 89 L Intake and Output 07/20/19 07/21/19 07/21/19 21:59 05:59 13:59 Intake Total 1442 360 250 Output Total 410 470 80 Balance 1032 -110 170 Intake: IV 1442 250 Sodium Chloride 0.9% 250 ml @ 195 20 mls/hr IV .[id number] QUIANA Rx#: [id number] Dobutrex 250 mg In Premix 1 Bag 247 250 @ 1 MCG/KG/MIN 4.074 mls/hr IV .Q24H QUIANA Rx#:[id number] Sodium Bicarbonate Vial 100 Meq 1000 In Dextrose 5% in Water 900 ml @ 100 mls/hr IV Q10H QUIANA Rx#: [id number] Oral 360 Output: Urine Catheter Amount 410 470 80 Other: Urine Appearance Clear Clear Clear Uretheral (Perez) Clear Clear Urine Color Bright Yellow Dark Yellow Dark Yellow Uretheral (Perez) Bright Yellow Bright Yellow Stool Size Small Smear Moderate Stool Color Brown Brown Brown Blood Tinged Blood Tinged Stool Consistency Liquid Liquid Liquid # Bowel Movements 2 1 # of times incontinent of 1 Bowels Weight 155 lb 14.4 oz Intake & Output: Intake & Output 07/20/19 07/21/19 07/21/19 21:59 05:59 13:59 Intake Total 1442 360 250 Output Total 410 470 80 Balance 1032 -110 170 Weight 155 lb 14.4 oz Intake: IV 1442 250 Sodium Chloride 0.9% 250 ml @ 195 20 mls/hr IV .[id number] QUIANA Rx#: [id number] Dobutrex 250 mg In Premix 1 Bag 247 250 @ 1 MCG/KG/MIN 4.074 mls/hr IV .Q24H QUIANA Rx#:[id number] Sodium Bicarbonate Vial 100 Meq 1000 In Dextrose 5% in Water 900 ml @ 100 mls/hr IV Q10H QUIANA Rx#: [id number] Oral 360 Output: Urine Catheter Amount 410 470 80 Other: Urine Appearance Clear Clear Clear Uretheral (Perez) Clear Clear Urine Color Bright Yellow Dark Yellow Dark Yellow Uretheral (Perez) Bright Yellow Bright Yellow Stool Size Small Smear Moderate Stool Color Brown Brown Brown Blood Tinged Blood Tinged Stool Consistency Liquid Liquid Liquid # Bowel Movements 2 1 # of times incontinent of 1 Bowels - General Appearance General appearance: cachectic, chronically ill, fatigue, frail EENT: ATNC, PERRL Neck: JVD, no thyromegaly, no carotid bruit Respiratory: kyphosis, rhonchi Cardiology: no murmurs, edema Gastrointestinal: normoactive bowel sounds, no tenderness Integumentary: no rash, ecchymotic Neurologic: no focal deficit, no asterixis, CN 3-12 intact Musculoskeletal: no erythema, no cyanosis, no clubbing Psychiatric: mood/affect appropriate (lethargic but arousable) - Lab 07/21/19 04:00 07/21/19 04:00 Most recent lab results Calcium 7.9 mg/dl (8.6-10.4) L 07/21/19 04:00 Phosphorus 4.5 mg/dL (2.7-4.5) 07/20/19 19:58 Magnesium 2.9 mg/dL (1.6-2.5) H 07/21/19 04:00 - Imaging Kidney/bladder ultrasound: report reviewed Assessment and Plan (1) Acute on chronic renal failure 1. The combination of low cardiac output (HR 30-50 with fixed SV), low fractional excreation of sodium, ARF on CRF 4, hyperkalemia and no obstruction omn renal U/S makes a good case that this patient needs his HR increased to 70- 80/min to double his current cardiac output and improve end organ perfusion. * Dobutamine till HR improves assuming carvedilol was the problem * If the heart rate has not improved in 24 hours, I suggest transfer for higher level of care and PPM * Continue to refrain from RAASI, especially since he has normal LVEF * Treat RV failure, pulmonary HTN with Hydralazine, nitrites, furosemide +/- ald actone * Avoid NSAIDs Status: Acute Priority: High Comment: Baseline SCr is 3.0 in clinic. Peak creatinine 5.6 prior to transfer, stopping B-blockers, ACEi, spironolactore and lasix. Pre-renal urinary indicies (FeNa <1%) on arrival argues for renal hypoperfusion. Seems like HR is too low for adequate cariac output so dobutamine added and SCr improve from 5's to 3.8-4.0 mg/dl. Therepuetic trial off dobutamine, if HR remains too low to sustain vital organ perfusion (worsening GFR, acidosis, ? bowel ischemia and worsening mentation), that would argue for PPM or hospice referal. Qualifiers: Acute renal failure type: unspecified Chronic kidney disease stage: stage 4 (severe) Qualified Code(s): N17.9 - Acute kidney failure, unspecified; N18.4 - Chronic kidney disease, stage 4 (severe) (2) Secondary hyperparathyroidism of renal origin PTH 160, need to check PO4 * Restart calcitriol at D/C * Keep PO4 < 5.5 Status: Chronic Priority: Low Comment: PTH at 162, at goal for CKD stage IV, vitamin D is at 30 calcium at goal, phos is elevated Ct calcitriol and cholecalciferol ct renvela for phos binding will monitor (3) Chronic systolic CHF (congestive heart failure), NYHA class 3 Actually, this is more like Cor pulmonale * BNP elevated, will restart lasix in a day or so * No need for lisinopril or B-Blockers * Hydralazine and nitrates +/- aldactone * Probably needs to quit smoking Status: Chronic Priority: High (4) Lower gastrointestinal hemorrhage Internal hemorrhoids banded and transfused 1 unit * Trend HgB * DANA and po iron as indicated due to decreased GFR * EGD when stable Status: Acute Priority: High Comment: Adequate iron as outpatient when last checked Check H/H and retic may need aranesp Emperic PPi for presumed UGI source s/p int hemorrhoid treatment (5) Anemia in chronic renal disease As above Status: Chronic Priority: Medium Comment: As above for acute on chronic blood loss anemia Qualifiers: Chronic kidney disease stage: stage 5, not on chronic dialysis Qualified Code(s): N18.5 - Chronic kidney disease, stage 5; D63.1 - Anemia in chronic kidn ey disease (6) Metabolic acidosis with increased anion gap and reduced excretion of inorganic acids Improved with IV bicarb * Bicarb or bicitra at d/c * Goal HCO3 of 20-24 Status: Acute Priority: Medium - Narrative A/P Narrative: Tommorow will tell about PPM need, ability to survive w/o HD and decision about plan moving forward.
[2019-07-21] MEDS: 0.9 % SODIUM CHLORIDE 250 ML IV SCH ×2 (08:58→21:38)
[2019-07-21] MEDS: HEPARIN 5,000 UNIT/ML VIAL SQ SCH ×2 (08:58→21:18)
[2019-07-21] MEDS: ISOSORBIDE DINITRATE 10 MG TABLET PO SCH ×3 (10:03→21:23)
[2019-07-21] MEDS: hydrALAZINE 25 MG TABLET PO SCH ×3 (10:05→21:23)
--- NOTE | 2019-07-21 13:58 | Internal Med Progress Note ---
Medical - PN: Subj Patient information: Note initiated : 07/21/19 at 1:55 pm Service Date, if different from initiated Date: [] Patient: Doug Mckeon 73 y/o M admitted on 07/19/19 for GI Bleed, Acute on chronic renal failure. Chief Complaint: [] Interval history: 73-year-old gentleman with a history of multiple comorbid conditions including CAD status post CABG, AAA rupture and repair in 2009, left renal artery stent placement in 2012, CVA, GI bleed, CKD, peripheral vascular disease, hypertension . He was admitted for progressively worsening renal failure with a creatinine of 5.6 and decreased urine output 07/20 -seen by nephrology yesterday and started him on bicarb drip, stopped NOEMÍ inhibitor and Coreg. He remained bradycardic overnight and started him on dobutamine by nephrology this morning. His heart rate has been more than 60. His urine output improved since having Perez catheter. He is having constipation and started him on lactulose and enema if needed. 07/21-his heart rate occasionally went down to 35 while he was sleeping first- degree heart block. But since this morning his heart rate has been more than 45. We will stop the dobutamine and watch his heart rate if he is dropping further will obtain cardiology consult. His urine output improved and creatinine getting better Pertinent ROS: General appearance-alert oriented not in any distress Respiratory-occasional wheezing otherwise denied any shortness of breath CVS-denied chest pain palpitations GI-denies any abdominal pain but complaining of distention Urinary denied any hematuria Neurology-alert oriented no new focal deficit identified - Constitutional Vitals: Vital Signs Temp Pulse Resp BP Pulse Ox 98.0 F 49 L 14 132/41 97 07/21/19 12:02 07/21/19 02:00 07/21/19 12:02 07/21/19 12:02 07/21/19 12:02 Period Temp Pulse Resp BP Sys/Leija Pulse Ox Last 24 Hr 98.0 F-101.2 F 49 14-30 119-189/40-119 87-100 Intake and Output 07/20/19 07/21/19 07/21/19 21:59 05:59 13:59 Intake Total 1442 360 250 Output Total 410 470 385 Balance 1032 -110 -135 Weight 155 lb 14.4 oz Intake & Output: Intake & Output 07/20/19 07/21/19 07/21/19 21:59 05:59 13:59 Intake Total 1442 360 250 Output Total 410 470 385 Balance 1032 -110 -135 Weight 155 lb 14.4 oz Intake: IV 1442 250 Sodium Chloride 0.9% 250 ml @ 195 20 mls/hr IV .[id number] QUIANA Rx#: [id number] Dobutrex 250 mg In Premix 1 Bag 247 250 @ 1 MCG/KG/MIN 4.074 mls/hr IV .Q24H QUIANA Rx#:[id number] Sodium Bicarbonate Vial 100 Meq 1000 In Dextrose 5% in Water 900 ml @ 100 mls/hr IV Q10H QUIANA Rx#: [id number] Oral 360 Output: Urine Catheter Amount 410 470 385 Other: Urine Appearance Clear Clear Clear Uretheral (Perez) Clear Clear Clear Urine Color Bright Yellow Dark Yellow Dark Yellow Uretheral (Perez) Bright Yellow Bright Yellow Dark Yellow Urine Odor Uretheral (Perez) Normal Stool Size Small Smear Moderate Stool Color Brown Brown Brown Blood Tinged Blood Tinged Stool Consistency Liquid Liquid Liquid # Bowel Movements 2 1 # of times incontinent of 1 Bowels General appearance: cooperative, no acute distress - Head Head exam: Present: atraumatic, normal inspection, normocephalic - Eye Eye exam: Present: normal appearance. Absent: conjunctival injection - ENT ENT exam: Present: mucous membranes moist, normal exam, normal external ear exam - Neck Neck exam: Present: full ROM, normal inspection. Absent: lymphadenopathy - Respiratory Respiratory exam: Present: rales, wheezes. Absent: accessory muscle use, respiratory distress - Cardiovascular Cardiovascular exam: Present: clicks, systolic murmur - GI/Abdominal GI/Abdominal exam: Present: normal bowel sounds, soft, distended - Neurological Exam Neurological exam: Present: alert, oriented X3. Absent: motor sensory deficit Medical - PN: Obj Da - Labs CBC & Chem 7: 07/21/19 04:00 07/21/19 04:00 Labs: Abnormal Lab Results 07/21/19 07/21/19 07/20/19 04:00 04:00 19:58 RBC 3.13 L Hgb 9.2 L Hct 28.3 L POC Hct RDW 17.0 H Plt Count 61 L MPV 10.6 H Lymphocytes % 9 L Monocytes % (Manual) 15 H Platelet Estimate Decreased A RBC Morphology Anisocytosis 1+ A Ovalocytes Sodium 146 H POC Chloride Chloride 113 H 109 H Carbon Dioxide 20 L POC Total CO2 Anion Gap POC BUN BUN 107 H* 112 H* Creatinine 4.0 H 3.8 H POC Creatinine Glucose 128 H POC Glucose Calcium 7.9 L 7.9 L POC WB Ioniz Calcium Magnesium 2.9 H NT-Pro-B Natriuret Pep Total Protein 4.8 L Albumin 2.8 L Globulin 2.0 L PTH Intact 07/20/19 07/20/19 07/20/19 15:37 04:00 04:00 RBC 3.26 L Hgb 9.7 L Hct 29.4 L POC Hct RDW 16.3 H Plt Count 90 L MPV 13.2 H Lymphocytes % 14 L Monocytes % (Manual) Platelet Estimate Decreased A RBC Morphology Abnorm A Anisocytosis 1+ A Ovalocytes Few A Sodium POC Chloride Chloride 110 H Carbon Dioxide 17 L POC Total CO2 Anion Gap 18.0 H POC BUN BUN 128 H* Creatinine 4.7 H POC Creatinine Glucose POC Glucose Calcium 7.9 L POC WB Ioniz Calcium Magnesium 3.2 H NT-Pro-B Natriuret Pep Total Protein 5.4 L Albumin Globulin 2.0 L PTH Intact 161.8 H 07/19/19 07/19/19 07/19/19 17:10 13:28 13:28 RBC Hgb Hct POC Hct 25.0 L RDW Plt Count MPV Lymphocytes % Monocytes % (Manual) Platelet Estimate RBC Morphology Anisocytosis Ovalocytes Sodium 147 H POC Chloride 116 H Chloride 112 H Carbon Dioxide 15 L POC Total CO2 17 L Anion Gap 20.0 H POC BUN > 140 H* BUN 133 H* Creatinine 5.0 H POC Creatinine 5.6 H* Glucose 53 L POC Glucose 61 L Calcium 8.0 L POC WB Ioniz Calcium 1.13 L Magnesium 3.3 H NT-Pro-B Natriuret Pep 47846.0 H Total Protein 5.4 L Albumin Globulin 2.1 L PTH Intact Meds: Medications Docusate Sodium (Colace) 100 mg PO BID [facility] Last Admin: 07/21/19 07:29 Dose: Not Given Documented by: Heparin Sodium (Porcine) (Heparin) 5,000 unit SQ Q12 [facility] Last Admin: 07/21/19 08:58 Dose: Not Given Documented by: Hydralazine HCl (Apresoline) 10 mg IV Q4-6HP PRN PRN Reason: Hypertension Hydralazine HCl (Apresoline) 25 mg PO TID [facility] Last Admin: 07/21/19 10:05 Dose: 25 mg Documented by: Sodium Chloride (Sodium Chloride 0.9%) 250 mls @ 20 mls/hr IV .[id number] [facility] Last Admin: 07/21/19 08:58 Dose: Not Given Documented by: Isosorbide Dinitrate (Isordil) 5 mg PO TID [facility] Last Admin: 07/21/19 10:03 Dose: 5 mg Documented by: Ondansetron HCl (Zofran) 4 mg IV Q4-6HP PRN; Protocol PRN Reason: Nausea And Vomiting Pantoprazole Sodium (Protonix) 40 mg PO [facility] Last Admin: 07/20/19 20:21 Dose: 40 mg Documented by: Quetiapine Fumarate (Seroquel) 12.5 mg PO [facility] Last Admin: 07/20/19 23:48 Dose: 12.5 mg Documented by: Senna (Senna) 8.8 mg PT DAILY [facility] Last Admin: 07/21/19 07:29 Dose: Not Given Documented by: Sodium Chloride (Saline Flush) 10 ml IV Q8 [facility] Last Admin: 07/21/19 13:02 Dose: 10 ml Documented by: Medical - PN: A/P - Time Spent With Patient Total time spent is greater than 50% in coordination of care (as documented) at patient's floor/unit and/or counseling patient: - Narrative A/P Narrative: Acute on chronic renal failure Baseline creatinine 2.5 and creatinine on admission 5.6 Presented with decreased urine output Plan Stopped Lasix and lisinopril Started him on hydralazine and nitrates for CHF Holding aspirin and Plavix because of the GI bleed Renal ultrasound showing evidence of obstruction Perez catheter placed and having good urine output Echocardiogram showing ejection fraction of 55%-previous echo reported 30% Nephrology closely following and his creatinine and urine output improved Dobutamine drip held to evaluate his bradycardia Lower GI bleed-probable internal hemorrhoidal bleed Last few days history of hematochezia status post hemorrhoidal clip He had some hematochezia this morning Monitoring BUN and hemoglobin monitor his hemoglobin Holding aspirin Plavix and heparin subcu Hemoglobin has been stable around 9 Sinus bradycardia probably due to Coreg Discontinued Coreg Generally his heart rate improved but he had 2 instances drop to 3536 while sleeping He is on dobutamine drip Stop the dobutamine drip to evaluate his bradycardia If it is dropping further we will obtain cardiology consult CAD status post CABG Holding dual antiplatelets due to lower GI bleed we will hold the Coreg as he is bradycardic Using hydralazine and long-acting nitro for CHF AAA rupture status post surgery This was in 2009 and patient does not know much history about it Probable COPD Patient does have a wheezing intermittently Continued smoking Duo nebs as needed CODE STATUS-he has severe vascular disease and multiple comorbid conditions make him critically ill. Explained to the patient about the critical illness and he verified he is DNR. But patient okay with the dialysis DVT prophylaxis-subcu heparin Medical - PN: Qual - VTE Deep Vein Thrombosis/Pulmonary Embolism Present on Admission: No
[2019-07-21] MEDS ORDERED: ATROPINE SULFATE 1 MG/10 ML SYRINGE IV PRN (15:26)
[2019-07-21] MEDS ORDERED: ATROPINE SULFATE 1 MG/ML VIAL IV PRN (15:45)
[2019-07-21] MEDS: PANTOPRAZOLE 40 MG TABLET PO SCH (21:23)
[2019-07-21] MEDS: QUEtiapine 25 MG TABLET PO SCH (21:23)
[2019-07-22] MEDS: 0.9 % SODIUM CHLORIDE 10 ML SYRINGE IV SCH (05:20)
[2019-07-22 06:49] LABS: ALT/SGPT 20 U/l (0-40); AST/SGOT 14 U/l (0-37); Albumin 2.9 gm/dL (3.2-5.2); Albumin/Globulin Ratio 1.3 (1.0-2.3); Alkaline Phosphatase 56 U/L (39-117); Bilirubin,Total 0.6 mg/dL (0.0-1.0); Blood Urea Nitrogen 107 mg/dl (8-23); Calcium 7.9 mg/dl (8.6-10.4); Carbon Dioxide 22 mmol/L (22-30); Chloride 112 mmol/L (96-108); Globulin 2.2 gm/dL (2.2-3.7); Glomerular Filtration Rate 13; Glucose 90 mg/dL (70-105)
[2019-07-22 07:02] LABS: Retic Absolute 1.3 % (0.5-1.5)
[2019-07-22 07:03] LABS: Hemoglobin 9.3 g/dL (13.5-16.5); Mean Cell Volume 90.5 fL (80.0-100.0); Mean Platelet Volume 10.9 fL (7.4-10.4); Platelet Count 62 K/mcL (140-440); Red Cell Distribution Width 17.3 % (11.5-14.5); WBC 11.5 K/mcL (4.5-11.0)
[2019-07-22 08:13] LABS: Acanthocytes 1+ (NONE SEEN); Anisocytosis 1+ (NONE SEEN); Burr Cells 1+ (NONE SEEN); Eosinophils % (Manual) 1 % (0-7); Lymphocytes % 8 % (15-49); Monocytes % (Manual) 15 % (1-12); Ovalocytes 1+ (NONE SEEN); Platelet Estimate DECREASED (NORMAL); RBC Fragments 1+ (NONE SEEN); RBC Morphology ABNORM (NORMAL); Segmented Neutrophils % 76 % (38-78)
[2019-07-22] MEDS: ISOSORBIDE DINITRATE 10 MG TABLET PO SCH (08:25)
[2019-07-22] MEDS: hydrALAZINE 25 MG TABLET PO SCH (08:25)
[2019-07-22] MEDS: SENNOSIDES 8.8 MG/5 ML ML PT SCH (08:34)
[2019-07-22] MEDS: DOCUSATE SODIUM 100 MG CAPSULE PO SCH (08:34)
[2019-07-22] MEDS: 0.9 % SODIUM CHLORIDE 250 ML IV SCH (09:13)
[2019-07-22] MEDS: HEPARIN 5,000 UNIT/ML VIAL SQ SCH (10:11)
[2019-07-22] MEDS ORDERED: DOBUTamine 250 MG in PREMIX 1 BAG IV SCH (10:30)
[2019-07-22] MEDS ORDERED: 0.9 % SODIUM CHLORIDE 250 ML IV SCH (10:30)
[2019-07-22] MEDS ORDERED: ACETAMINOPHEN 1,000 MG/100 ML BOTTLE IV ONE (10:55)
--- NOTE | 2019-07-22 11:16 | Discharge Summary ---
Medical - DS: Prov Patient information: Note initiated : 07/22/19 at 11:13 am Service Date, if different from initiated Date: [] Patient: Doug Mckeon 73 y/o M admitted on 07/19/19 for GI Bleed, Acute on chronic renal failure. Chief Complaint: [] Date of admission: 07/19/19 15:30 Discharge date: 07/22/19 Primary care physician: Bry Marquez Consults: 07/19/19 Consult to Physician [CONS] Stat Comment: Consulting Provider: Tabitha Burch Reason For Exam: Physician to Consult Consult to Physician [CONS] Stat Comment: Consulting Provider: Deo Lo Reason For Exam: Physician to Consult Medical - DS: Meds - Discharge Medications Active and Home Medications: Home Medications aspirin 81 mg chewable tablet 81 mg PO QDAY tab 04/05/15 [History Confirmed 07/19/19 Last Taken Unknown] clopidogrel 75 mg tablet 75 mg PO QDAY tab 04/05/15 [History Confirmed 07/19/19 Last Taken Unknown] pyridoxine (vitamin B6) 50 mg tablet 50 mg PO QDAY tab 04/05/15 [History Confirmed 07/19/19 Last Taken Unknown] carvedilol 12.5 mg tablet 12.5 mg PO BID tab 05/03/15 [History Confirmed 07/19/19 Last Taken Unknown] lisinopril 10 mg tablet 10 mg PO QHS #30 tab 05/29/16 [Rx Confirmed 07/19/19 Last Taken Unknown] prednisone 10 mg tablet 10 mg PO QDAY tab 05/29/16 [History Confirmed 07/19/19 Last Taken Unknown] docusate sodium 100 mg capsule 200 mg PO QDAY 08/14/16 [History Confirmed 07/19/19 Last Taken Unknown] amlodipine 10 mg tablet 10 mg PO QDAY #30 tab 03/25/18 [Rx Confirmed 07/19/19 Last Taken Unknown] cholecalciferol (vitamin D3) 2,000 unit capsule 2,000 unit PO QDAY #30 cap 03/25/18 [Rx Confirmed 07/19/19 Last Taken Unknown] ferrous gluconate 324 mg (36 mg iron) tablet 324 mg PO BID tab 02/24/19 [History Confirmed 07/19/19 Last Taken Unknown] rosuvastatin 10 mg tablet 10 mg PO QDAY #90 tab 02/24/19 [Rx Confirmed 07/19/19 Last Taken Unknown] tamsulosin 0.4 mg capsule 0.4 mg PO QDAY 02/24/19 [History Confirmed 07/19/19 Last Taken Unknown] furosemide 80 mg tablet 20 mg PO BID tab 05/26/19 [History Confirmed 07/19/19 Last Taken Unknown] Calcitriol [Rocaltrol] 0.25 mcg PO Q48H 07/19/19 [History Confirmed 07/19/19 Last Taken Unknown] Medical - DS: Hosp Hospital Course: 73-year-old gentleman with a history of multiple comorbid conditions including CAD status post CABG, AAA rupture and repair in 2009, left renal artery stent placement in 2012, CVA, GI bleed, CKD, peripheral vascular disease, hypertension. He was admitted for progressively worsening renal failure with a creatinine of 5.6 and decreased urine output 07/20 -seen by nephrology yesterday and started him on bicarb drip, stopped NOEMÍ inhibitor and Coreg. He remained bradycardic overnight and started him on dobutamine by nephrology this morning. His heart rate has been more than 60. His urine output improved since having Perez catheter. He is having constipation and started him on lactulose and enema if needed. 07/21-his heart rate occasionally went down to 35 while he was sleeping first- degree heart block. But since this morning his heart rate has been more than 45. We will stop the dobutamine and watch his heart rate if he is dropping further will obtain cardiology consult. His urine output improved and creatinine getting better 07/22-last night he had multiple episodes of prolonged pauses and the longest one being 4.2 seconds. Patient was sleeping did not complaining any symptoms this morning. Discussed with the dental front office assistant at [facility] and agreed to accept the patient and will be transferred. Discussed with the obstetrics scrub nurse and with the patient and agreed with the transfer Acute on chronic renal failure Baseline creatinine 2.5 and creatinine on admission 5.6 Presented with decreased urine output Stopped Lasix and lisinopril Started him on hydralazine and nitrates for CHF Holding aspirin and Plavix due to the hemorrhoidal bleed Renal ultrasound showing evidence of obstruction Perez catheter placed and having good urine output He was started on dobutamine drip by nephrology as he was bradycardic upon admission Patient bradycardia improved and dobutamine drip was stopped Sinus bradycardia and prolonged pause Upon admission patient's heart rate was 40s and he was on Coreg We stopped the Coreg, heart rate improved But last night intermittently he had prolonged pauses prongest pause last night was 4.2 Discussed with a dental front office assistant at [facility] in [facility] and agreed for further management Lower GI bleed-probable internal hemorrhoidal bleed Last few days history of hematochezia status post hemorrhoidal clip Monitoring BUN and hemoglobin monitor his hemoglobin Holding aspirin Plavix and heparin subcu Hemoglobin has been stable around 9 CAD status post CABG Holding dual antiplatelets due to lower GI bleed Held Coreg as he is bradycardic Using hydralazine and long-acting nitro for CHF AAA rupture status post surgery This was in 2009 and patient does not know much history about it Probable COPD Patient does have a wheezing intermittently Continued smoking Duo nebs as needed CODE STATUS-he has severe vascular disease and multiple comorbid conditions make him critically ill. Explained to the patient about the critical illness and he verified he is DNR. But patient okay with the dialysis and pacemaker DVT prophylaxis-subcu heparin Discharge diagnosis: Sinus bradycardia and heart block, acute on chronic renal failure, lower GI Secondary discharge diagnosis: Lower GI bleed-internal hemorrhoidal bleed - Time Spent with Patient Total time spent providing and/or coordinating discharge services: Greater than 30 minutes Medical - DS: Exam - Constitutional Vitals: Vital Signs Temp Pulse Resp BP Pulse Ox 07/22/19 10:01 16 119/46 98 07/22/19 09:00 18 118/48 98 07/22/19 08:01 99 F 18 104/38 07/22/19 07:01 20 127/50 07/22/19 06:01 22 119/41 98 07/22/19 05:01 22 135/48 97 07/22/19 04:03 98.6 F 15 129/51 100 07/22/19 02:41 19 124/57 07/22/19 02:01 24 H 127/56 97 07/22/19 02:00 62 17 94 07/22/19 01:01 17 134/46 94 07/22/19 00:01 99.2 F H 21 131/50 100 07/21/19 23:01 19 135/47 07/21/19 22:01 21 136/44 92 07/21/19 21:01 20 118/44 97 07/21/19 20:01 99.2 F H 19 121/57 96 07/21/19 20:00 96 07/21/19 19:02 15 130/51 95 07/21/19 18:01 18 134/40 95 07/21/19 17:01 12 130/47 95 07/21/19 16:00 98.1 F 17 146/65 97 07/21/19 15:00 17 135/56 96 07/21/19 14:02 17 131/61 95 07/21/19 14:00 84 15 95 07/21/19 13:01 17 145/44 97 07/21/19 12:02 98.0 F 14 132/41 97 Intake and Output 07/21/19 07/22/19 07/22/19 21:59 05:59 13:59 Intake Total 120 240 Output Total 425 311 110 Balance -305 -311 130 Intake: Oral 120 240 Output: Urine Catheter Amount 425 311 110 Other: Meal Dinner Breakfast Percent of Meal Consumed 50% 100% Feeding Ability Assist with Tray Set Up Assist with Tray Set Up Urine Appearance Clear Cloudy Cloudy Uretheral (Perez) Clear Clear Cloudy Urine Color Dark Yellow Straw Light Elizabeth Uretheral (Perez) Bright Yellow Bright Yellow Light Elizabeth Dark Yellow Dark Yellow Urine Odor Strong Uretheral (Perez) Normal Stool Size Smear Stool Color Brown Bright Red Blood Stool Consistency Loose Weight 150 lb 4 oz General appearance: cooperative, no acute distress - Head Head exam: Present: atraumatic, normal inspection, normocephalic - Eye Eye exam: Present: normal appearance - ENT ENT exam: Present: mucous membranes moist, normal exam, normal external ear exam - Neck Neck exam: Present: normal inspection. Absent: lymphadenopathy - Cardiovascular Cardiovascular exam: Present: normal rate and rhythm, systolic murmur. Absent: JVD, +S3 - GI/Abdominal GI/Abdominal exam: Present: normal bowel sounds, soft, distended - Neurological Exam Neurological exam: Present: alert, oriented X3, reflexes normal. Absent: altered, motor sensory deficit Medical - DS: Data Labs on day of discharge: Labs from last 24 hours 07/22/19 07/22/19 07/22/19 10:44 04:00 04:00 WBC RBC Hgb Hct MCV MCH MCHC RDW Plt Count MPV Total Counted Seg Neutrophils % Band Neutrophils % Lymphocytes % Monocytes % (Manual) Eosinophils % (Manual) Platelet Estimate RBC Morphology Anisocytosis Ovalocytes Elva Cells Acanthocytes (Spur) RBC Fragments Absolute Retic 1.3 Sodium Potassium Chloride Carbon Dioxide Anion Gap BUN Creatinine GFR Calculation Glucose Calcium Magnesium Total Bilirubin AST ALT Alkaline Phosphatase NT-Pro-B Natriuret Pep 33715.0 H Total Protein Albumin Globulin Albumin/Globulin Ratio Urine Color Pending Urine Appearance Pending Urine pH Pending Ur Specific Pierson Pending Urine Protein Pending Urine Glucose (UA) Pending Urine Ketones Pending Urine Occult Blood Pending Urine Nitrate Pending Urine Bilirubin Pending Urine Urobilinogen Pending Ur Leukocyte Esterase Pending 07/22/19 07/22/19 04:00 04:00 WBC 11.5 H RBC 3.20 L Hgb 9.3 L Hct 29.0 L MCV 90.5 MCH 28.9 MCHC 32.0 RDW 17.3 H Plt Count 62 L MPV 10.9 H Total Counted 100 Seg Neutrophils % 76 Band Neutrophils % Not Reportable Lymphocytes % 8 L Monocytes % (Manual) 15 H Eosinophils % (Manual) 1 Platelet Estimate Decreased A RBC Morphology Abnorm A Anisocytosis 1+ A Ovalocytes 1+ A Elva Cells 1+ A Acanthocytes (Spur) 1+ A RBC Fragments 1+ A Absolute Retic Sodium 146 H Potassium 4.5 Chloride 112 H Carbon Dioxide 22 Anion Gap 12.0 BUN 107 H* Creatinine 4.1 H GFR Calculation 13 Glucose 90 Calcium 7.9 L Magnesium 3.0 H Total Bilirubin 0.6 AST 14 ALT 20 Alkaline Phosphatase 56 NT-Pro-B Natriuret Pep Total Protein 5.1 L Albumin 2.9 L Globulin 2.2 Albumin/Globulin Ratio 1.3 Urine Color Urine Appearance Urine pH Ur Specific Pierson Urine Protein Urine Glucose (UA) Urine Ketones Urine Occult Blood Urine Nitrate Urine Bilirubin Urine Urobilinogen Ur Leukocyte Esterase Medical - DS: A/P - Patient/Caregiver Discharge Instructions Diet: Renal - Follow up Plan Follow up with: Bry Marquez MD [Primary Care Provider] - Disposition: [facility] Prognosis: Serious Rehab Potential: Fair Medical - DS: Qual - VTE Deep Vein Thrombosis/Pulmonary Embolism Present on Admission: No
--- NOTE | 2019-07-22 11:27 | Nephrology Progress Note ---
Subjective Patient information: Note initiated : 07/22/19 at 11:21 am Service Date, if different from initiated Date: [] Patient: Doug Mckeon 73 y/o M admitted on 07/19/19 for GI Bleed, Acute on chronic renal failure. Chief Complaint: [] Principal diagnosis: Renal failure, hyperkalemia and GI bleed Interval history: Dobutamine stopped, >72 hr since last dose of Carvedilol, ARB and diuretics +> resulting in return of marked bradycardia and sinus pauses. This is associated with decreased renal perfusion and ARF/CRF (SCr 3.0 baseline to peak 5.6 mg/dl) with associated prerenal uninary indicies (FeNa <1%) and improved with HR into 70's with dobutamine up to 10 ug/kg/hr. On dobutamine serum creatinine decreased to 3.8 mg/dl in 24 hours. Transfer to [facility] for PPM to maintain HR 70/min in the patient and avoid the need for dialysis which would be a disaster in this patient with his current cardiovascular status. BNP 10K of dobutamine. The echo here with EF 50% was on low dose dobutamine and significantly better than those referrenced in Dr Bella prior note. 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 Has a mild respiratory acidosis. Pulmonary HTN BP Rx changed to Hydralazine and nitrates. Will need lasix once PPM placed AVOID RASSI due tp degree of decreased GFR and the apparent improvement in his LVEF. His Cardiac index is low and fixed due to his bradycardia and inability to increase stroke volume. He remains a DNR but has agreed to PPM and dialysis if needed. Transfer to [facility] is pending as of this time. Pertinent ROS: N/A Additional PMFSH (Level 3 Only): N/A Objective - Vital Signs Vital signs: Vital Signs Temp Pulse Resp BP Pulse Ox 07/22/19 10:01 16 119/46 98 07/22/19 09:00 18 118/48 98 07/22/19 08:01 99 F 18 104/38 07/22/19 07:01 20 127/50 07/22/19 06:01 22 119/41 98 07/22/19 05:01 22 135/48 97 07/22/19 04:03 98.6 F 15 129/51 100 07/22/19 02:41 19 124/57 07/22/19 02:01 24 H 127/56 97 07/22/19 02:00 62 17 94 07/22/19 01:01 17 134/46 94 07/22/19 00:01 99.2 F H 21 131/50 100 07/21/19 23:01 19 135/47 07/21/19 22:01 21 136/44 92 07/21/19 21:01 20 118/44 97 07/21/19 20:01 99.2 F H 19 121/57 96 07/21/19 20:00 96 07/21/19 19:02 15 130/51 95 07/21/19 18:01 18 134/40 95 07/21/19 17:01 12 130/47 95 07/21/19 16:00 98.1 F 17 146/65 97 07/21/19 15:00 17 135/56 96 07/21/19 14:02 17 131/61 95 07/21/19 14:00 84 15 95 07/21/19 13:01 17 145/44 97 07/21/19 12:02 98.0 F 14 132/41 97 Intake and Output 07/21/19 07/22/19 07/22/19 21:59 05:59 13:59 Intake Total 120 240 Output Total 425 311 110 Balance -305 -311 130 Intake: Oral 120 240 Output: Urine Catheter Amount 425 311 110 Other: Meal Dinner Breakfast Percent of Meal Consumed 50% 100% Feeding Ability Assist with Tray Set Up Assist with Tray Set Up Urine Appearance Clear Cloudy Cloudy Uretheral (Perez) Clear Clear Cloudy Urine Color Dark Yellow Straw Light Elizabeth Uretheral (Perez) Bright Yellow Bright Yellow Light Elizabeth Dark Yellow Dark Yellow Urine Odor Strong Uretheral (Perez) Normal Stool Size Smear Stool Color Brown Bright Red Blood Stool Consistency Loose Weight 150 lb 4 oz Intake & Output: Intake & Output 07/21/19 07/22/19 07/22/19 21:59 05:59 13:59 Intake Total 120 240 Output Total 425 311 110 Balance -305 -311 130 Weight 150 lb 4 oz Intake: Oral 120 240 Output: Urine Catheter Amount 425 311 110 Other: Meal Dinner Breakfast Percent of Meal Consumed 50% 100% Feeding Ability Assist with Tray Set Up Assist with Tray Set Up Urine Appearance Clear Cloudy Cloudy Uretheral (Perez) Clear Clear Cloudy Urine Color Dark Yellow Straw Light Elizabeth Uretheral (Perez) Bright Yellow Bright Yellow Light Elizabeth Dark Yellow Dark Yellow Urine Odor Strong Uretheral (Perez) Normal Stool Size Smear Stool Color Brown Bright Red Blood Stool Consistency Loose - General Appearance General appearance: cachectic, chronically ill, fatigue, frail EENT: ATNC, PERRL (OD non-reactive), mucous membranes dry Neck: JVD, no thyromegaly, no carotid bruit Respiratory: kyphosis Cardiology: no murmurs, no rub, edema, irregular rhythm Gastrointestinal: normoactive bowel sounds, no tenderness, no guarding, no organomegaly Integumentary: no rash, ecchymotic Neurologic: no focal deficit, disoriented Musculoskeletal: no deformities, no cyanosis, no clubbing Psychiatric: cooperative - Lab 07/22/19 04:00 07/22/19 04:00 Most recent lab results Calcium 7.9 mg/dl (8.6-10.4) L 07/22/19 04:00 Phosphorus 4.5 mg/dL (2.7-4.5) 07/20/19 19:58 Magnesium 3.0 mg/dL (1.6-2.5) H 07/22/19 04:00 Assessment and Plan (1) Acute on chronic renal failure 1. The combination of low cardiac output (HR 30-50 with fixed SV), low fractional excreation of sodium, ARF on CRF 4, hyperkalemia and no obstruction omn renal U/S makes a good case that this patient needs his HR increased to 70- 80/min to double his current cardiac output and improve end organ perfusion. * Improved with dobutamine and increased HR * If the heart rate has not improved in 24 hours, I suggest transfer for higher level of care and PPM * Continue to refrain from RAASI, especially since he has normal LVEF on most recent echo * Treat RV failure, pulmonary HTN with Hydralazine, nitrites, furosemide +/- aldactone * Avoid NSAIDs Status: Acute Priority: High Comment: Baseline SCr is 3.0 in clinic. Peak creatinine 5.6 prior to transfer, stopping B-blockers, ACEi, spironolactore and lasix. Pre-renal urinary indicies (FeNa <1%) on arrival argues for renal hypoperfusion. Seems like HR is too low for adequate cariac output so dobutamine added and SCr improve from 5's to 3.8-4.0 mg/dl. Therepuetic trial off dobutamine, if HR remains too low to sustain vital organ perfusion (worsening GFR, acidosis, ? bowel ischemia and worsening mentation), that would argue for PPM or hospice referal. Qualifiers: Acute renal failure type: unspecified Chronic kidney disease stage: stage 4 (severe) Qualified Code(s): N17.9 - Acute kidney failure, unspecified; N18.4 - Chronic kidney disease, stage 4 (severe) (2) Secondary hyperparathyroidism of renal origin PTH 160, need to check PO4 * Restart calcitriol at D/C * Keep PO4 < 5.5 Status: Chronic Priority: Low Comment: PTH at 162, at goal for CKD stage IV, vitamin D is at 30 calcium at goal, phos is elevated Ct calcitriol and cholecalciferol ct renvela for phos binding will monitor (3) Chronic systolic CHF (congestive heart failure), NYHA class 3 Actually, this is more like Cor pulmonale * BNP elevated, will restart lasix in a day or so after PPM is in place * No need for lisinopril or B-Blockers * Hydralazine and nitrates +/- aldactone * Probably needs to quit smoking Status: Chronic Priority: High (4) Lower gastrointestinal hemorrhage Internal hemorrhoids banded and transfused 1 unit * Trend HgB * DANA and po iron as indicated due to decreased GFR * EGD when stable * Hosding ASA/Plavix * Received 1 unit pRBCs here * S/P banding of internal hemorrhoids at referring hospital Status: Acute Priority: High Comment: Adequate iron as outpatient when last checked Check H/H and retic may need aranesp Emperic PPi for presumed UGI source s/p int hemorrhoid treatment (5) Anemia in chronic renal disease As above If HgB drops below 9.0, ok for Aranesp Status: Chronic Priority: Medium Comment: As above for acute on chronic blood loss anemia Qualifiers: Chronic kidney disease stage: stage 5, not on chronic dialysis Qualified Code(s): N18.5 - Chronic kidney disease, stage 5; D63.1 - Anemia in chronic kidney disease (6) Metabolic acidosis with increased anion gap and reduced excretion of inorganic acids Improved with IV bicarb * Bicarb or bicitra at d/c * Goal HCO3 of 20-24 Status: Acute Priority: Medium
[2019-07-22 21:23] LABS: Appearance,Urine TURBID; Bacteria,Urine MOD /hpf (0); Bilirubin,Urine NEG (NEG); Color,Urine YELLOW; Culture Indicated,Urine NO; Glucose,Urine (UA) NEGATIVE (NEG); Ketones,Urine NEG (NEG); Leukocyte Esterase,Urine 250 /uL (NEG); Nitrate,Urine NEG (NEG); Protein,Urine 100 mg/dL (NEG); Specific Gravity,Urine 1.012 (1.000-1.035); Urine Blood >=1.0 mg/dL (<0.03); Urine RBC 132 /hpf (0-1); Urine Squamous Epithelial Cell 2 /hpf (0-4); Urine WBC > 182 /hpf (0-4); Urobilinogen,Urine NEG (NEG)
== END 2019-07-22 12:05 | disposition short-term general hospital (02) | DRG 292 ==
LOC: ED 12:21 → ICU 15:30
PROVIDERS: ADMIT Internal Medicine; ATTEND Internal Medicine